=== PATIENT | female | born 1965 | race Caucasian/White ===

== ENCOUNTER → 2022-01-24 | Outpatient (CLI) | payer OTHER, SELFPAY | END | disposition home or self-care (01) | PROVIDERS: Visit Provider Nurse Practitioner | DX: H20.9 Unspecified iridocyclitis (principal); R30.0 Dysuria | CPT/HCPCS: 87086; 87088; 87186 ==

== ENCOUNTER → 2023-06-24 | Outpatient (CLI) | payer OTHER, SELFPAY ==
--- OUTSIDE RECORDS SUMMARY | 2023-06-24 22:24 | XMS RPT_ITS | CCD ---
Author Name Unknown Address [address] [place] [address] Organization [facility] Care Team Providers Care Celery Packer Name Role Phone Usha Price Unavailable Unavailable OrlandoNabila north E Unavailable Unavailable Orlando Nabila Unavailable Unavailable Orlando, Nabila E Unavailable [phone] Unavailable Unavailable Judie Miranda Unavailable [phone] JUDIE MIRANDA Primary Care Unavailable RUTH JUDIE, JUDIE~[phone] RUTH Atte nding Unavailable MIRANDA JUDIE, JUDIE~[phone] RUTH Refe rring Unavailable CHRISTINE HU, ISAIAS Referring Unavailable TRESA HU, NABILA Primary Care Unavailable CHRISTINE HU, ISAIAS Attending Unavailable Ruth, Ms. Judie L Primary Care Unavailab dominick Menendez, Dr. Сергей Coffman Attending Sammie Miranda, Ms. Judie L Primary Care Unavailab dominick Menendez, Dr. Сергей Coffman Attending Dr. Сергей Olvera Attending Sammie Miranda, Ms. Judie L Primary Care Unavailab le Ruth, Ms. Judie L Primary Care Unavailab dominick Menendez, Dr. Сергей Coffman Attending Dr. Сергей Olvera Admitting Sammie Miranda, Ms. Judie L Referring Unavailab le Ruth, Ms. Judie L Primary Care Unavailab СЕРГЕЙ Lozano Attending Unavailabl Dr. Сергей Galvez Attending Smamie Miranda, Ms. Judie L Primary Care Unavailab dominick Menendez, Dr. Сергей Coffman Attending Sammie Menendez, Dr. Сергей Coffman Referring Sammie Menendez, Dr. Сергей Coffman Admitting Sammie Miranda, . Judie L Primary Care Unavailab dominick Miranda, . Judie L Primary Care Unavailab le Angela, Dr. Сергей Coffman Attending Sammie Orlando, Dr. Nabila Diaz Primary Care gio Nash, Jesu Attending Unavailable Angela, Dr. Сергей Coffman Attending Sammie Miranda, Ms. Judie L Primary Care Unavailab dominick Menendez, Dr. Сергей Coffman Attending Sammie Miranda, Ms. Juide L Primary Care Unavailab dominick Nash, Jesu Attending Mac Miranda, . Judie L Primary Care Unavailab dominick Miranda, Ms. Judie L Primary Care Unavailab dominick Menendez, Dr. Сергей Coffman Attending Sammie Miranda [facility], Judie Johnson Primary Care Provide r СЕРГЕЙ MENENDEZ Attending JUDIE [facility] Unavailable СЕРГЕЙ MENENDEZ Referring [facility] RUTH JUDIE [facility] Unavailable Allergies Allergy Classification Reported Allergen(s) Allergy Type Date of Onset Reaction(s) Facility Cephalosporins (antibiotic) (1 source) Cephalexin; Translations: [Keflex TABS] Drug Allergy Rash [facility] Work Phone: (20 sources) Cephalexin; Translations: [Keflex TABS] Drug Allergy Rash [facility] Work Phone: Medications Completed/Discontinued Medications Medication Drug Class(es) Dates Sig (Normalized) Sig (Original) acetaminophen 325 mg / HYDROcodone bitartrate 5 mg oral tablet (16 sources) Opioid Agonist Start: 06-12-2022 HYDROcodone-Acetami nophen 5-325 MG Oral Tablet Quantity: 3 Refills: 0 Ordered: 12-Jun-2022 DO Start : 12-Jun-2022 Active amoxicillin 500 mg oral capsule (16 sources) Penicillin-class Antibacterial Start: 06-12-2022 Amoxicillin 500 MG Oral Capsule Quantity: 28 Refills: 0 Ordered: 12-Jun-2022 DO Start : 12-Jun-2022 Active baclofen 5 mg oral tablet (16 sources) gamma-Aminobutyric Acid-ergic Agonist Start: 11-13-2021 Baclofen 5 MG Oral Tablet Quantity: 60 Refills: 0 Ordered: 13-Nov-2021 DO Start : 13-Nov-2021 Active ciprofloxacin 500 mg oral tablet (16 sources) Quinolone Antimicrobial Start: 01-24-2022 Ciprofloxacin HCl - 500 MG Oral Tablet Quantity: 14 Refills: 0 Ordered: 24-Jan-2022 DO Start : 24-Jan-2022 Active citric acid 75 mg/ml / magnesium oxide 21.9 mg/ml / picosulfate sodium 0.0625 mg/ml oral solution (16 sources) Calculi Dissolution Agent, Anti-coagulant Start: 07-09-2022 Clenpiq 10-3.5-12 MG-GM -GM/160ML Oral Solution Quantity: 320 Refills: 0 Ordered: 09-Jul-2022 DO Start : 09-Jul-2022 Active cyclobenzaprine hydrochloride 10 mg oral tablet (16 sources) Muscle Relaxant Start: 07-23-2022 take 1 tablet by mouth at bedtime as needed Cyclobenzaprine HCl - 10 MG Oral Tablet TAKE 1 TABLET AT BEDTIME NEEDED. Quantity: 30 Refills: 0 Ordered: 23-Jul-2022 Jenaro Gillespie MD Start : 23-Jul-2022 Active diazePAM 10 mg oral tablet (16 sources) Benzodiazepine Start: 05-10-2022 diazePAM 10 MG Oral Tablet Quantity: 2 Refills: 0 Ordered: 17-May-2022 DO Start : 10-May-2022 Active levothyroxine sodium 0.075 mg oral tablet (20 sources) l-Thyroxine Start: 09-20-2021 Levothyroxine Sodium 75 MCG Oral Tablet Quantity: 90 Refills: 0 Ordered: 20-Sep-2021 DO Start : 20-Sep-2021 Active Problems Active Problems Problem Classification Problem Date Documented Date Episodic/Chronic Allergic reactions (20 sources) H/O: non-drug allergy; Translations: [Other allergy, other than to medicinal agents] Episodic Asthma (2 sources) Unspecified asthma, uncomplicated; Translations: [Unspecified asthma, uncomplicated] Onset: 10-13-2022 Chronic Complications of surgical procedures or medical care (1 source) Postprocedural hypothyroidism; Translations: [Postprocedural hypothyroidism] Onset: 11-07-2022 Chronic Complications of surgical procedures or medical care (20 sources) Complication of anesthesia; Translations: [Unspecified adverse effect of anesthesia] Onset: 10-30-2022 Episodic Diabetes mellitus without complication (18 sources) Impaired fasting glycemia; Translations: [Impaired fasting glucose] Episodic Disorders of lipid metabolism (20 sources) Hypertriglyceridemia; Translations: [Pure hyperglyceridemia] Chronic Esophageal disorders (1 source) Gastro-esophageal reflux disease without esophagitis; Translations: [Gastro-esophageal reflux disease without esophagitis] Onset: 10-13-2022 Chronic Gangrene (1 source) Gangrene, not elsewhere classified; Translations: [Gangrene, not elsewhere classified] Onset: 11-07-2022 Episodic Genitourinary symptoms and ill-defined conditions (20 sources) Proteinuria; Translations: [Proteinuria] Episodic Immunizations and screening for infectious disease (20 sources) Patient encounter status; Translations: [Other specified vaccination] Episodic Nonmalignant breast conditions (20 sources) Discharge from nipple; Translations: [Other signs and symptoms in breast] Episodic Other acquired deformities (1 source) Spondylolisthesis, lumbar region; Translations: [Spondylolisthesis, lumbar region] Onset: 08-28-2022 Episodic Other acquired deformities (1 source) Spondylolisthesis, lumbosacral region; Translations: [Spondylolisthesis, lumbosacral region] Onset: 01-10-2023 Episodic Other aftercare (1 source) Encounter for other orthopedic aftercare; Translations: [Encounter for other orthopedic aftercare] Onset: 11-22-2022 Episodic Other circulatory disease (20 sources) History of clinical finding in subject; Translations: [Personal history of other diseases of circulatory system] Episodic Other connective tissue disease (2 sources) Arthrodesis status; Translations: [Arthrodesis status] Onset: 11-09-2022 Episodic Other hematologic conditions (20 sources) H/O: anemia; Translations: [Personal history of diseases of blood and blood-forming organs] Episodic Other nervous system disorders (20 sources) Neuropathy; Translations: [Mononeuritis of unspecified site] Chronic Other nervous system disorders (20 sources) Carpal tunnel syndrome; Translations: [Carpal tunnel syndrome] Chronic Other non-traumatic joint disorders (20 sources) Multiple joint pain; Translations: [Pain in joint, multiple sites] Episodic Other nutritional; endocrine; and metabolic disorders (20 sources) Body mass index 30+ - obesity; Translations: [Body Mass Index 36.0-36.9, adult] Chronic Other nutritional; endocrine; and metabolic disorders (1 source) Body mass index (BMI) 45.0-49.9, adult; Translations: [Body mass index [BMI] 45.0-49.9, adult] Onset: 11-07-2022 Chronic Other nutritional; endocrine; and metabolic disorders (1 source) Morbid (severe) obesity due to excess calories; Translations: [Morbid (severe) obesity due to excess calories] Onset: 11-07-2022 Chronic Other nutritional; endocrine; and metabolic disorders (1 source) Body mass index (BMI) 40.0-44.9, adult; Translations: [Body mass index [BMI] 40.0-44.9, adult] Onset: 10-13-2022 Chronic Other nutritional; endocrine; and metabolic disorders (1 source) Obesity, unspecified; Translations: [Obesity, unspecified] Onset: 10-13-2022 Chronic Other screening for suspected conditions (not mental disorders or infectious disease) (20 sources) Cancer cervix - screening done; Translations: [Patient encounter status] Episodic Past or Other Problems Problem Classification Problem Date Documented Da te Episodic/Chronic Other connective tissue disease (20 sources) Tendinitis of right elbow; Translations: [Other synovitis and tenosynovitis] Resolved: 09-23-2018 Episodic Other connective tissue disease (1 source) Pain in left leg; Translations: [Pain in left leg] Onset: 07-23-2022 Episodic Other connective tissue disease (1 source) Tendinitis of right elbow; Translations: [History of Right elbow tendonitis] Other lower respiratory disease (20 sources) H/O: bronchitis; Translations: [Personal history of other diseases of respiratory system] Resolved: 08-30-2014 Episodic Other lower respiratory disease (20 sources) Cough; Translations: [Cough] Resolved: 01-03-2020 Episodic Other skin disorders (20 sources) Skin lesion; Translations: [Unspecified disorder of skin and subcutaneous tissue] Resolved: 04-16-2016 Episodic Unclassified (20 sources) History of clinical finding in subject; Translations: [History of cough] Resolved: 09-23-2018 Unclassified (1 source) Influenza vaccination declined; Translations: [History of Influenza vaccination declined] Unclassified (1 source) Patient encounter status; Translations: [Visit for screening mammogram] NEGATED: Highlighted row has not occurred!Residual codes; unclassified (3 sources) Disease Episodic Results Test Name Value Interpretation Reference Range Facil ity Vital Signs Date Time Vital Sign Value Performing Clinician Faci lity 04-11-2023 08:36-0500 Body height 167.6 cm Сергей Menendez MD Work Phone: [facility] 04-11-2023 08:36-0500 Body mass index (BMI) [Ratio] 45.68 kg/m2 Сергей Menenedz MD Work Phone: [facility] 04-11-2023 08:36-0500 Body weight 128.37 kg Сергей Menendez MD Work Phone: [facility] 07-23-2022 11:02-0500 Body height 170.18 cm Nabila Orlando [facility] [address] [place] Work Phone: 07-23-2022 11:02-0500 Body mass index (BMI) [Ratio] 42.29 kg/m2 Nabila Orlando Work [facility] [address] [place] Work Phone: 07-23-2022 11:02-0500 Body surface area Derived from formula 2.3 m2 Nabila Orlando Work [facility] [address] [place] Work Phone: 07-23-2022 11:02-0500 Body weight 122.47 kg Nabila Orlando Work [facility] [address] [place] Work Phone: 03-24-2021 09:48-0400 Systolic blood pressure 110 mm[Hg] Nabila Orlando Work Phone: [facility] Work Phone: Encounters Encounter Date Encounter Type Care Provider Facility Start: 04-11-2023 End: 04-12-2023 ambulatory [facility]NA[facility] Start: 04-11-2023 End: 04-11-2023 Office outpatient visit 15 minutes Сергей Menendez MD Work Phone: [facility] Procedures Date Procedure Procedure Detail Performing Clinician Start: 04-11-2023 XR LUMBAR SPINE 2-3 VIEWS СЕРГЕЙ MENENDEZ Start: 01-01-2020 Mammography Сергей villafuerte MD Work Phone: Start: 06-13-2018 Thyrotropin [Units/v olume] in Serum or Plasma Сергей Menendez MD Work Phone: section Usha cruz Cholecystectomy Usha vergara History of Hysterosc opy With Endometrial Ablation Usha Price Hysterectomy Usha Price Plan of Treatment Date Care Activity Detail Author Start: 04-11-2023 End: 04-11-2024 XR Lumbar spine 2 or 3 Views [facility] Servic e Area Work Phone: Immunizations Immunization Date Immunization Notes Care Provider [facility] 03-16-2021 Pfizer-BioNTech COVI D-19 Vacc 30 MCG/0.3ML Intramuscular Suspension Nabila Orlando Work Phone: [facility] [address] [place] Work Phone: 07-02-2020 Pfizer-BioNTech COVI D-19 Vacc 30 MCG/0.3ML Intramuscular Suspension Nabila Orlando Work Phone: [facility] [address] [place] Work Phone: 06-11-2020 Pfizer-BioNTech COVI D-19 Vacc 30 MCG/0.3ML Intramuscular Suspension Nabila Orlando Work Phone: [facility] Work Phone: Payers Date Payer Category Payer Private Health Insurance [id number] 2008 Private Health Insurance 1967 Unknown [id number] 2.16.8 [id number] 1967 Unknown [id number] 2.16.8 [id number] 1967 Unknown [id number] 2.16.8 [id number] 1967 Unknown [id number] 2.16.8 40.1.842447.3.579.2.1067 1967 Unknown [id number] 2.16.8 40.1.663778.3.579.2.1067 1967 Unknown [id number] 2.16.8 40.1.999965.3.579.2.1067 1967 Unknown [id number] 2.16. [id number] 1967 Unknown [id number] 2.16.8 40.1.555404.3.579.2.1068 1967 Unknown [id number] .16.8 40.1.265352.3.579.2.1068 1967 Unknown [id number] 2.16.8 40.1.092017.3.579.2.1068 1967 Unknown [id number] 2.16.8 40.1.366904.3.579.2.1068 1967 Unknown [id number] 2.16.8 40.1.745576.3.579.2.1068 1967 Unknown [id number] 2.16.8 40.1.987349.3.579.2.1068 1967 Unknown [id number] 2.16.8 40.1.485250.3.579.2.1068 1967 Unknown [id number] 2.16.8 40.1.590040.3.579.2.1069 1967 Unknown [id number] 2.16.84 0.1.307694.3.579.2.1243 1967 Unknown [id number] 2.16.84 [id number] Self-pay Unknown Social History Date Type Detail Facility No alcohol use No alcohol use [facility] Work Phone: Functional Status Date Assessment Result Facility NEGATED: Highlighted row Functional performance Functional status health issues are not documented Disease [facility] Work Phone: Mental Status Date Assessment Result Facility NEGATED: Highlighted row Cognitive function [Interpretation] Cognitive status health issues are not documented Disease [facility] Work Phone: Clinical Notes 07-23-2022 to 04-11-2023 Сергей Menendez MD - 04/11/2023 8:30 AM EST Note Date & Type Note Facility 04-11-2023 History of Present illness Narrative La Biswas is a 57 y.o. female who presents for Follow-up of the Lower Back (F/U L5-S1 TLIF 10/12/22 - 6 mths out w/ AP /LAT X-Ray Today/Lumbar I&D 11/05/22 5 Mths Out - Doing Good/). HPI: 57-year-old female here for surgical follow-up. She is 6 months out from an L5-S1 MIS TLIF. And subsequent washout. She denies any fever chills nausea vomiting night sweats she has no bowel or bladder complaints. Physical exam: Well-nourished, well kept.No lymphangitis or lymphadenopathy in the examined extremities. Gait normal. Can walk on heels and toes. Examination of the back reveals no swelling, step off, or point tenderness. Range of motion with flexion, extension, side bending and rotation is well maintained without crepitance, instability, or exacerbation of pain. Strength is within normal limits. There is good strength and no instability. Examination of the lower extremities reveals no point tenderness, swelling, or deformity. Range of motion of the hips, knees, and ankles are full without crepitance, instability, or exacerbation of pain. Strength is 5/5 throughout. No redness, abrasions, or lesions on extremities Gross sensation intact in the extremities. Deep tendon reflexes 2+ bilateral. Clonus negative. Affect normal. Alert and oriented 3. Coordination normal. Incisions are both very well-healed. Imaging studies: AP lateral plain films of the lumbar spine were obtained and reviewed today. Assessment: 57-year-old female is here for surgical follow-up. She is 6 months out from an L5-S1 TLIF on October 12, 2022, with a subsequent washout on November 05, 2022. She is doing very well today. Overall 80% better. She has minimal if any back pain, and no real leg pain to speak of except at night when she lays on her left side she does get a little bit of left leg ache but when she is up and moving during the day she does not have any problems. The incisions look very well-healed. Plan: For complete plan and/or surgical details, please refer to Dr. Menendez's portion of this split dictation. In a [id number] encounter, I performed a history and physical examination, discussed pertinent diagnostic studies if indicated, and discussed diagnosis and management strategies with both the patient and the midlevel provider. I reviewed the midlevel's note and agree with the documented findings and plan of care. 6 months out L5-S1 MIS TLIF. Patient doing great. She has some left hip bursitis which is giving her a little bit of pain down the left lateral thigh to the knee when she lies on her left side at night. Otherwise she feels good. She is functioning normally in life and very happy with how she is doing. X-rays look good today. Plan we will let her engage in activities as tolerated and she can follow-up with us in 6 months for AP lateral x-rays of the lumbar spine. documented in this encounter [facility] Work Phone: 11-07-2022 Note Send Summary: Discharge Summary Providers: Provider RoleProvider Name Judie Lopez Robert ConsultingCataline, Philip PrimaryRichardson, Judie L Note Recipients: Сергей Menendez MD - [id number] [Preferred] Franki Zelaya MD Discharge: Summary: Admission Date: .03-Nov-2022 13:27:00 Discharge Date: 07-Nov-2022 Attending Physician at Discharge: Сергей Menendez Admission Reason: Spinal abscess(1) Final Discharge Diagnoses: s/p back I&D Procedures: Date: 05-Nov-2022 13:49:00 Procedure Name: 1. 2. 3. 4. 5. Condition at Discharge: Satisfactory Disposition at Discharge: .Home Vital Signs: T PRBPMAPSpO2 [id number]/359812% Date/Time11/07 8: 8: 8: 8: 8: 8:12 Range(36.1C - 36.4C ) (59 - 70 ) (16 - 18 ) (99 - 130 )/ (53 - 65 ) (79 - 87 ) (94% - 96% ) Date: Weight/Scale Type:Height: 03-Nov-2022 13:00031.3 kg / odlkczdq240.4 cm Hospital Course: Discharge summary This patient was admitted to the hospital on 11/03/22 after having positive fluid aspiration form office later that week - form her back. pt then underwent back I&D on 11/05/22- During the postoperative period, while in hospital, patient was medically managed by the hospitalist and ID Please see medial notes and H&P for patients additional diagnoses. Ortho agrees with all medical diagnoses and treatments while patient in hospital. No significant or unexpected findings or abnormal ortho imaging were noted during the hospital stay Hospital course Patient tolerated surgical procedure well and there was no complications. Patient progressed adequately through their recovery during hospital stay including PT and rehabilitation. Patient was then D/C to home with HHC/ PICC and IV antibiotics in stable condition. Patient was instructed on the use of pain medications, the signs and symptoms of infection, and was given our number to call should they have any questions or concerns following discharge. Discharge Information: and Continuing Care: Lab Results - Pending: Culture, Miscellaneous, includes Gram Stain Drawn at 05-Nov-2022 13:30:00 Culture, Miscellaneous, includes Gram Stain Drawn at 05-Nov-2022 13:30:00 Culture, Blood Drawn at 03-Nov-2022 14:18:00 Culture, Blood Drawn at 03-Nov-2022 14:18:00 Radiology Results - Pending: None Discharge Instructions: Activity: activity as tolerated. May not return to school/work. May not drive. Weight-bearing Instructions: full weight bearing. Nutrition/Diet: resume normal diet Labs: Lab Test(s): Basic Metabolic Panel, CBC, CRP Date To Be Drawn: weekly- starting on 11/15/22 x3 occurrences Call Results To: ID office Comments: Dr Montes Wound Care: Wound Site: back Change Dressin time a day as needed Line Care: Homecare ONLY Lines: Adult Access Type: PICC Line Site: Right Homecare Line Care Orders: - Pulse Flush each lumen with 10 mLs normal saline flush before and after medications, followed by 5 mls of 10 units per ml heparin flush. Follow with positive displacement line clamping technique. - If medication is not infusing, flush each lumen daily with 10 ml normal saline followed by 5 mls of 10 units per ml heparin flush. - Weekly sterile dressing change with chloroprep, if tolerated, and sterile gloves and mask. Use transparent dressing. May use Tegaderm CHG or Chlorhexidine disk for high risk infection patients. Use securement device or dressing and change weekly. - Sterile gauze dressings are changed three times per week if transparent is not tolerated. - Change injection cap and extension sets weekly and as needed. Cleanse catheter hub with Site-Scrub (preferred), or alcohol pads with injection cap change. Prime injection cap with normal saline before use. Coordinate with dressing change, if possible. - Tubing changes - DAILY for intermittent infusions, lipid, or blood products. Every 96 hours for continuous infusions. Maximum of 7 days for CORPORATE RECYCLING MANAGER or other low infection risk therapies that remain intact. Use separate tubings for different medications. - Cathflo 2 mg IV as needed per lumen for sluggish lines, loss of, or poor blood return. Stopcock or Vertical Syringe method per RN discretion for completely occluded lines. Dwell time 2 hours whenever possible. Maximum daily dose is 4 mg for a single lumen and 8 mg for a double lumen catheter. - RN to record number of lumens, size and length of catheter, and external catheter length. Assess weekly and as needed. Assess baseline mid upper arm circumference at start of care and prn for signs and symptoms of edema and DVT. Record on dressing and in clinical note. - LINE may remain in place with a valid need, if patency is maintained and there is no migration, pain, redness, swelling, or signs and symptoms of infection, and site is clean and dry. Notify MD of (more content not included)... [facility] 11-05-2022 Note Post Operative Note: Post-Procedure Diagnosis: Lumbar suprafascial wound infection Procedure: 1. 2. 3. 4. 5. Surgeon: Angela Resident/Fellow/Other [employer] Director: Juan Estimated Blood Loss (mL): Minimal Specimen: yes. Left superficial/suprafascial aspiration. Right tissue cultures and swabs Findings: Lumbar suprafascial wound infection Operative Report Dictated: Dictation: not applicable - note contains Operative Report Note Recipients: Сергей Menendez MD - [id number] [Preferred] Franki Zelaya MD Richardson, Dora L, [facility] - [phone] [] Operative Report: Preoperative diagnosis: L4-5 suprafascial wound infection/postoperative Postop diagnosis: Above Procedure: Irrigation debridement down to and including the fascia on the right at L4-5. There was no bone or muscle involvement. Cultures were sent. Additionally, aspiration of the left suprafascial wound was performed and fluid was sent for Gram stain cultures and cell count. Surgeon: Сергей Menendez M.D. Asst.: Fabrice DunlapThe physician apartment assistant manager was present through the entire case. Given the nature of the disease process and the procedure to be performed a skilled surgical resident was necessary during the case. The apartment assistant manager was necessary in order to hold retractors and directly assist in the operation. A certified pedorthotist was at the back table managing instruments and supplies for the surgical case. Anesthesia: General endotracheal HPI: Status post MIS TLIF October 12, 2022. Developed some right incisional drainage last week. Aspiration grew out group B streptococcus. MRI was performed over the weekend. Patient is scheduled for washout of the right suprafascial wound. We also discussed with her aspirating the left suprafascial wound.All of the risks, benefits, and potential complications for operative and nonoperative treatment were discussed at length with the patient. Risks of operative intervention include, but are not limited to: Anesthesia complications, extensive blood loss, infection, damaged uninjured structures, blood clots, and lack of improvement or worsening of symptoms. These complications could result in , permanent disability, or need for reoperation. The patient completely understood these risks and wished to proceed with operative intervention. Operative implants: None Operative procedure: The patient was wheeled from the preanesthesia care unit to the theater. The patient was placed in supine position and all bony prominences were well-padded. For the entire procedure anesthesia maintainined control of the patient's head neck. General anesthesia was induced. The patient was placed prone on the Christiano table. The back was prepped and draped in normal sterile fashion. Aspiration was performed of the left suprafascial wound and obtained 65 cc of tri liquidy fluid. This was sent to pathology. I spoke with pathology on the phone and explained to me it would be quite some time before they could run a cell count and Gram stain as they normally send those downtown. I explained to them the urgency and they said they would try but they could not promise when that would be done. The right wound was opened up and purulent material and some necrotic fibrinous material was encountered. Tissue was sent for cultures. Swabs were taken. The wound was irrigated with copious amounts of normal saline using pulse Avage and a 3 L bag. Once the bag was empty the wound base and edges were scraped with a curette. At this point there was clean tissue throughout the entire wound base and this was suprafascial. The wound was irrigated again with copious months normal saline using pulse Avage irrigation for 2 more liters. Bovie was then used to stop some of the larger bleeders. At this point the wound was relatively dry and clean. A drain was placed and tied into position. The skin was closed with Prolene suture. At this point the lab was nowhere close to having results therefore the patient was woken up due to the uncertainty of how long we would need to wait given the inability of the lab to provide expedited service. The patient tolerated the procedure well. This dictation was created using voice recognition software. If there are any questions about inaccuracies please do not hesitate to contact me. Electronic Signatures: Сергей Menendez) (Signed 05-Nov-2022 13:55) Authored: Post Operative Note, Note Completion Last Updated: 05-Nov-2022 13:55 by Сергей Menendez) [facility] 11-03-2022 Note History of Present I llness: /Lactating: Are You no Are You Currently Breastfeedingno Admission Reason: Back abscess drainage HPI: LA BISWAS is a 57 year old Female patient was brought in as a direct admit due to drainage to her right lower back incision. Back on October 12, 2022 Dr. Menendez performed an L4-L5 left microdiscectomy and an L5-S1 lumbar fusion with an interbody cage. She states that she was doing pretty good then she noticed recently that she was having drainage on the right side of the bottom of the incision went and seen had a culture and sensitivity done by Dr. Menendez they elected to bring her in have an MRI done and place her on IV antibiotics. She denies loss of bowel or bladder. Her left incision to her lower back is clean and dry on the right there is some drainage on the top portion of the incision. She is got good sensation capillary refill 5 out of 5 foot pumps. Past medical history includes back pain/herniated disc, hypothyroidism Surgical history includes back surgery on October 12, hysterectomy, cholecystectomy, thyroidectomy Social history denies tobacco or alcohol abuse Past Medical/Surgical History: Medical History: Hypothyroidism: Sleep apnea: GERD (gastroesophageal reflux disease): Asthma: Surg History: Back pain: Other spondylosis, lumbosacral region: Onset Date: 16-Oct-2022 Other spondylosis, lumbar region: Onset Date: 16-Oct-2022 Spondylolisthesis of lumbosacral region: Onset Date: 16-Oct-2022 Spinal stenosis of lumbosacral region: Onset Date: 16-Oct-2022 Other intervertebral disc displacement, lumbar region: Onset Date: 16-Oct-2022 History of hysterectomy: History of cholecystectomy: History of section: Family History: Family History: reviewed and not pertinent to presenting problem Social History: Social History: Smoking Statusnever smoker Alcohol Usedenies Drug Usedenies Drug 2 Usedenies Allergies: cephalexin: Rash Medications Prior to Admission: Admission Medication Reconciliation has not been completed for this patient. Review of Systems: Constitutional: NEGATIVE: Fever, Chills, Anorexia, Weight Loss, Malaise Eyes: NEGATIVE: Blurry Vision, Drainage, Diploplia, Redness, Vision Loss/ Change ENMT: NEGATIVE: Nasal Discharge, Nasal Congestion, Ear Pain, Mouth Pain, Throat Pain Respiratory: NEGATIVE: Dry Cough, Productive Cough, Hemoptysis, Wheezing, Shortness of Breath Cardiac: NEGATIVE: Chest Pain, Dyspnea on Exertion, Orthopnea, Palpitations, Syncope Gastrointestinal: NEGATIVE: Nausea, Vomiting, Diarrhea, Constipation, Abdominal Pain Genitourinary: NEGATIVE: Discharge, Dysuria, Flank Pain, Frequency, Hematuria Musculoskeletal: POSITIVE: Decreased ROM, Pain, Stiffness; COMMENTS: Lower back Neurological: NEGATIVE: Dizziness, Confusion, Headache, Seizures, Syncope Psychiatric: NEGATIVE: Mood Changes, Anxiety, Hallucinations, Sleep Changes, Suicidal Ideas Skin: COMMENTS: Lower right incision small amount of drainage noted Endocrine: NEGATIVE: Heat Intolerance, Cold Intolerance, Sweat, Polyuria, Thirst Hematologic/Lymph: NEGATIVE: Anemia, Bruising, Easy Bleeding, Night Sweats, Petechiae Allergic/Immunologic: NEGATIVE: Anaphylaxis, Itchy/ Teary Eyes, Itching, Sneezing, Swelling Objective: Physical Exam by System: Eyes: PERRL, EOMI, clear sclera ENMT: mucous membranes moist, no apparent injury, no lesions seen Head/Neck: Neck supple, no apparent injury, thyroid without mass or tenderness, No JVD, trachea midline, no bruits Respiratory/Thorax: Patent airways, CTAB, normal breath sounds with good chest expansion, thorax symmetric Cardiovascular: Regular, rate and rhythm, no murmurs, 2+ equal pulses of the extremities, normal S 1and S 2 Gastrointestinal: Nondistended, soft, non-tender, no rebound tenderness or guarding, no masses palpable, no organomegaly, +BS, no bruits Musculoskeletal: Lower back right incision small amount of drainage noted Extremities: normal extremities, no cyanosis edema, contusions or wounds, no clubbing Neurological: alert and oriented x3, intact senses, motor, response and reflexes, normal strength Skin: Warm and dry, no lesions, no rashes Medications: Medications: Continuous Medications No continuous medications are active Scheduled Medications 1. diazePAM (VALIUM): 5 mg Oral Once 2. Vancomycin - RPh to Dose - IV Piggy Back: 1 each As Specified Variable PRN Medications No PRN medications are active Assessment and Plan: Assessment: 57-year-old female back on 10/02/2022 had a microdiscectomy at the L4-L5 and L5-S1 had a interbody fusion with a cage. In the past couple days she noticed some drainage on the right lower incision they elected to send (more content not included)... [facility] 10-13-2022 Note Send Summary: Discharge Summary Providers: Provider RoleProvider Name Сергей Marc Robert PrimaryRichardson, Dora L Note Recipients: Сергей Menendez MD - [id number] [Preferred] Judie Miranda APRNJENNIFER - [phone] [] Discharge: Summary: Admission Date: .12-Oct-2022 05:13:00 Discharge Date: 13-Oct-2022 Attending Physician at Discharge: Сергей Menendez Admission Reason: Back pain Final Discharge Diagnoses: Back pain Procedures: Date: 12-Oct-2022 11:12:00 Procedure Name: 1. 2. 3. 4. 5. Condition at Discharge: Satisfactory Disposition at Discharge: .Home Vital Signs: T PRBPMAPSpO2 [id number]% Date/Time10/13 8: 8: 8: 8: 8: 8:00 Range(36C - 36.4C ) (59 - 86 ) (16 - 18 ) (113 - 122 )/ (57 - 73 ) (86 - 86 ) (93% - 98% ) Date: Weight/Scale Type:Height: 12-Oct-2022 13:32255.8 kg / buvdzodb993.1 cm Physical Exam: Constitutional: obese, awake/alert/oriented, no distress, alert and cooperative Eyes: clear sclera ENMT: mucous membranes moist, no apparent injury Head/Neck: Neck supple, no apparent injury Respiratory/Thorax: Patent airways, good chest expansion, thorax symmetric Musculoskeletal: Lower back 2 side by side dressings vertically placed Left dressing is soiled with bloody drainage, appears to be old Dressings changed and steri strips visualized No erythema, purulent drainage or wound dehiscence Neurological: alert and oriented, no clear focal deficit Psychological: Appropriate mood and behavior Skin: Warm and dry Hospital Course: The patient was admitted to the hospital and after undergoing a surgical spine procedure: Procedure: 1) L4-5 left microdiscectomy, L5-S1 removal of Pittman fragment in order to provide decompression of the left L5 nerve root via a separate and distinct approach that was needed for placement of interbody cage 2) L5-S1 posterior lumbar interbody fusion 3) L5-S1 posterior lateral fusion 4) L5-S1 instrumentation 5) L5-S1 interbody cage 6) Thermal ablation of the medial nerve branch supplying the facets at on the left at L4-5 and L5-S1. She was evaluated and is now ready for discharge. During the hospital course, while in the hospital, the patient was medically managed; hospitalist consultation was sought when needed. The patient received appropriate care for noted diagnosis and treatment. Orthopedic surgery agrees with all medical diagnosis and treatments while the patient was in the hospital. No significant or unexpected findings or abnormal imaging were noted during the hospital stay. The patient tolerated orthopedic consultation and or surgical procedure well and there were no complications. The patient progressed adequately through the recovery during their stay including the use of PT and rehabilitation. DVT prophylaxis was started after surgery if appropriate. The patient was discharged to home in stable condition. The patient was instructed on the use of pain medication, the signs and symptoms of infection, and was given our number to call should they have any questions or concerns following discharge. Discharge Information: and Continuing Care: Lab Results - Pending: Surgical Pathology Drawn at 12-Oct-2022 10:31:00 Radiology Results - Pending: None Discharge Instructions: Activity: activity as tolerated. May shower.. May not return to school/work until follow-up visit with. May not drive until follow-up visit. No pushing, pulling, or lifting objects greater than 10 pounds until follow-up visit. Nutrition/Diet: resume normal diet Wound Care: Wound Type: surgical incision Cleanse With: soap and water Instructions: no lotions, creams, or tub soaks Additional Orders: Special Equipment: brace Brace Instructions: Lumbosacral Brace to wear when out of bed ambulating Additional Instructions: Call Dr. Menendez for any problems and/or concerns. *Maintain spine precautions *Log roll as instructed *Walk as much as possible *Avoid pushing, pulling, bending, twisting, and sitting/laying down in the same position for long periods of time *No baths, hot tubs, or pools until cleared by physician; no lotions, creams, ointments over incision *You may shower, do not soak or scrub incision; pat dry *Continue the coughing and deep breathing exercises that you learned in the hospital *Do not engage in sports, heavy work or lifting *If you have a brace/collar-wear as instructed by physician and/or therapy, keep the brace/collar clean and dry, check the skin around the brace/collar every day and notify your physician of any concerns Call Doctor right away for: *Fever above 100.4/shaking chills *New pain, weakness, warmth, or numbness in your legs *Foot, ankle, or calf swelling that is not relieved by elevating your feet *Inability to urinate/move bowels *A severe headache (more content not included)... [facility] 10-12-2022 History of Present illness Narrative La is here for a wound check. She initially had an L5-S1 MIS TLIF On October 12, 2022. She developed a superficial fluid collection on the right incision of that procedure. She had a lumbar I&D washout On Saturday the . She was discharged home on Saturday. Last night she noticed that her dressing between noon and midnight was soaked pretty much completely through and she was concerned so she came in today for a wound check. The bandage was changed and a new bandage was put on. At the office visit today there was just one small spot about the size of a pea of some drainage, but it does not look purulent and it does not look infected. It looks like pink serosanguineous fluid. She has had no other issues with drainage. She still has a PICC line in her right arm. She is continuing to receive IV antibiotics. Overall she is feeling pretty well, not a lot of back pain. not significant leg complaints. She is not using the cane for ambulation anymore. She is standing and walking freely. She denies any fever, chills, nausea, vomiting, or night sweats. She has no bowel or bladder complaints. [facility] Work Phone: 10-12-2022 History of Present illness Narrative La is a 57-year-old female who is here for a wound check. She is two weeks out from a lumbar I&D washout of her right incision from a prior L5-S1 MIS TLIF done on 10/12/2022. She was having issues with her right incision. Over this past weekend, I believe she said Saturday, she got a lot of drainage on her bandage. It soaked completely through within a very short time. That bandage was changed and it soaked through completely again. She had photographs of this, it was a pinkish serosanguineous-looking fluid. That profuse drainage stopped very shortly after that and then over the next day or so she has noticed basically just small anne sized spots of a pinkish-yellow fluid and a little bit of dark blood. She has not had anymore episodes of the bandages soaking through. She is here today for a wound check. She is not having any fevers, chills, or sweats. She is not having any constitutional symptoms. She has no bowel or bladder problems. From a surgical standpoint she feels great, she is able to go up and down stairs, she is able to walk, she is able to sit and stand. She really feels great from a surgical standpoint. She still has a PICC line in her arm for antibiotics that should be coming out soon. [facility] Work Phone: 10-12-2022 Note Post Operative Note: Post-Procedure Diagnosis: Lumbar stenosis, isthmic spondylolisthesis, herniated disc, spondylosis Procedure: 1. 2. 3. 4. 5. Surgeon: Angela Resident/Fellow/Other [employer] Director: Juan Estimated Blood Loss (mL): 100 cc Specimen: yes. L4-5 herniated disc Findings: Lumbar stenosis, isthmic spondylolisthesis, herniated disc, spondylosis Operative Report Dictated: Dictation: not applicable - note contains Operative Report Note Recipients: Сергей Menendez MD - [id number] [Preferred] Judie Miranda, [facility] - [phone] [] Operative Report: Preoperative diagnosis: L4-5 left herniated disc and L5-S1 foraminal stenosis. L5-S1 isthmic spondylolisthesis. Lumbar spondylosis. Postop diagnosis: Same Procedure: 1) L4-5 left microdiscectomy, L5-S1 removal of Pittman fragment in order to provide decompression of the left L5 nerve root via a separate and distinct approach that was needed for placement of interbody cage 2) L5-S1 posterior lumbar interbody fusion 3) L5-S1 posterior lateral fusion 4) L5-S1 instrumentation 5) L5-S1 interbody cage 6) Thermal ablation of the medial nerve branch supplying the facets at on the left at L4-5 and L5-S1. Surgeon: Сергей Menendez M.D. Asst.: Oswaldo Dunlap The physician apartment assistant manager was present through the entire case. Given the nature of the disease process and the procedure to be performed a skilled surgical resident was necessary during the case. The apartment assistant manager was necessary in order to hold retractors and directly assist in the operation. A certified pedorthotist was at the back table managing instruments and supplies for the surgical case. Anesthesia: General HPI: The patient had pain from the above-described condition. The patient failed all nonoperative treatment. All of the risks, benefits, and potential complications for operative and nonoperative treatment were discussed at length with the patient. Risks of operative intervention include, but are not limited to: Anesthesia complications, excessive blood loss, infection, damaged to uninjured structures including, but not limited to, the dural sac and nerve roots, blood clots, and lack of improvement or worsening of symptoms. These complications could result in , permanent disability, or need for reoperation. The patient completely understood those risks and wished to proceed with operative intervention. Operative implants: Medtronic Solera Voyager screws, Medtronic Catalyft PL cage size 22 mm long 10 mm wide 7 mm high, Actifuse gun bone graft. Operative procedure: The patient was wheeled from the preanesthesia care unit to the theater. The patient was placed in supine position and all bony prominences were well-padded. For the entire procedure anesthesia maintainined control of the patient's head neck. General anesthesia was induced. The patient was then placed prone on the Christiano table. All bony prominences were well-padded. X-rays were then taken to confirm appropriate visualization of the operative level in AP and lateral projections.. Usingl fluoroscopic imaging the cephalad and caudal pedicles were marked on the patient's skin. The incisions were then marked. Next, the back was prepped and draped in normal sterile fashion. Timeout was performed, site verification was verified, and appropriate antibiotic administration was confirmed. A longitudinal incision was then performed off to the left side of the marke pedicles. Dissection was carried down through the skin with a knife and Bovie was used to dissect down the fat and the fascia. Blunt dissection was taken down to the transverse processes and facet on the left side. Next, the identical procedure was performed on the right side. Using AP and lateral fluoroscopic imaging and Pediguard, an and intrapedicular approach was performed. Using fluoroscopic imaging to to ensure that there was no breech of the pedicle, the trocar was brought down just through the posterior vertebral body wall of the right cephalad pedicle. This was done by starting at the 3 o'clock position. The guidewire was docked into the vertebral body. Next the identical procedure was performed on the left starting at the 9 o'clock position. In the identical procedure was then performed bilaterally at the caudal level for both pedicles. The wires were covered with suction tubing and appropriately stored. Appropriate pedicle guard readings were obtained for all 4 wires. Using lateral x-ray, dilators were placed on the patient's left side over the L5-S1 level facet and lamina. Dilators were dilated up to a size 22 and a permanent 26 mm tube was docked into appropriate position visualized on AP and lateral projections. The microscope was then brought in for use. Bovie was used to remove a small amount of fat and muscle overlying the facet and lamina. A Bovie was then used to perform thermal ablation (more content not included)... [facility] 07-23-2022 History of Present illness Narrative La is here for MRI followup and review. She is a patient that I saw on July 23, 2022. She is having back pain and left leg radicular-type pain. She has tried physical therapy in the past, but the therapy was making her hurt so bad that eventually the physical therapist stopped doing therapy and told her that this probably was not going to help her. This started in October of 2021 and eventually became low back pain and left leg radicular symptoms that usually goes down to about the side of the knee, but she does get some paresthesias and numbness in the left foot. There is nothing on the right side. She has tried physical therapy. She has tried medication. She has tried steroids. Nothing has helped. She got some cortisone injections by her family doctor, Dr. Orlando that did help, but only temporarily. She is here to discuss the findings on the EMG and the MRI. She denies any fever, chills, nausea, vomiting, or night sweats. She has no bowel or bladder complaints. [facility] Work Phone: documented in this encounter [facility] Work Phone: History of Present illness NarrativeThis is a new patient to the group, new patient to the practice. La is a 56-year-old female thathas about an eight-month or so history of low back pain and left leg radicular symptoms. This started in October of 2021. She was just doing normal activity and started to feel excessive back pain and radiating pain down in the left leg. This goes through the left buttock and around the lateral part of the thigh. It generally stops at the knee, although she does get some episodes of tingling and paresthesias down in the left foot. There is nothing on the right side. She had a flare-up of this in February of 2022 and it is getting worse. Overall, the back is what bothers her worse, probably 60% back and 40% left leg, but that is based on activity. It is affecting her bodily function. She cannot sleep at night. She cannot lie on her left side. She has seen her family doctor, Dr. Orlando, who gaveher some cortisone injections that did help, although temporarily. She did physical therapy at [facility]. She did three or four visits, and the physical therapist stopped the therapy and dismissed herfrom therapy because of the detrimental effects it was having on the patient. The therapy was causing her significant amounts of increased pain and was not working. She has failed physical therapy and was told by the therapist that therapy would not help her moving forward. Otherwise, she has not had epidural injections. She has never had surgery. She denies any fevers, chills, nausea or vomiting, night sweats. No bowel or bladder complaints.[facility] Work Phone: History of Present illness Katie is here for postop visit. She is 13 days out from an L5-S1 MIS TLIF. She states that her first few days after surgery were pretty rough; she was having a lot of back pain and she was having constant calf and left foot pain. This has resolved. She is not having that constant pain that she was having. She feels like she is still a little weak in the left leg, especially when she goes to go upor down stairs. She feels like she cannot lead with that leg yet. She was having left leg issues prior to her surgery. She had an isthmic spondylolisthesis at L5-S1. At this visit today, her foot does feel better. Her left lower extremity feels better. She gets a little occasional ache in the outside of the left calf, but it was not like it was before. She is still having some back pain. Overall maybe she is about 30% better. She is wearing her brace as instructed. She is following all postop restrictions. She denies any fever, chills, nausea, vomiting, or night sweats. She has no bowel or bladder complaints.[facility] Work Phone: History of Present illness Katie is doing great. She says her leg pain is mostly gone, except at night she notices some pain. She can go up and down stairs a lot of easier. She is at least 75% better with regards to the legs. The back is much better as well. All in all, she feels significantly better. She has no fevers or chills. She is still on IV antibiotics with a PICC line, and Infectious Disease is managing that. No bowel or bladder changes. No fevers.[facility] Work Phone: Summary Purpose Family History No Family History Records Found Grandfather Name Dates Details Family history of diabetes devon ellitus(V18.0, Z83.3) Status:Active Family history of cardiac pa cemaker(V17.49, Z82.49) Status:Active Mother Name Dates Details Family history of malignant neoplasm of breast(V16.3, Z80.3) Status:Active Father Name Dates Details Family history of diabetes m ellitus(V18.0, Z83.3) Status:Active Family history of hypertensi on(V17.49, Z82.49) Status:Active Unknown Family Member Name Dates Details Family history of malignant neoplasm of breast: Mother(V16.3, Z80.3) Status:Active Family history of diabetes m ellitus: Father, Paternal Grandfather(V18.0, Z83.3) Status:Active Family history of hypertensi on: Father(V17.49, Z82.49) Status:Active Family history of cardiac pa cemaker: Paternal Grandfather(V17.49, Z82.49) Status:Active Unknown Family Member Name Dates Details Family history of malignant neoplasm of breast: Mother(V16.3, Z80.3) Status:Active Family history of diabetes m ellitus: Father, Paternal Grandfather(V18.0, Z83.3) Status:Active Family history of hypertensi on: Father(V17.49, Z82.49) Status:Active Family history of cardiac pa cemaker: Paternal Grandfather(V17.49, Z82.49) Status:Active Unknown Family Member Name Dates Details Family history of malignant neoplasm of breast: Mother(V16.3, Z80.3) Status:Active Family history of diabetes m ellitus: Father, Paternal Grandfather(V18.0, Z83.3) Status:Active Family history of hypertensi on: Father(V17.49, Z82.49) Status:Active Family history of cardiac pa cemaker: Paternal Grandfather(V17.49, Z82.49) Status:Active Unknown Family Member Name Dates Details Family history of malignant neoplasm of breast: Mother(V16.3, Z80.3) Status:Active Family history of diabetes m ellitus: Father, Paternal Grandfather(V18.0, Z83.3) Status:Active Family history of hypertensi on: Father(V17.49, Z82.49) Status:Active Family history of cardiac pa cemaker: Paternal Grandfather(V17.49, Z82.49) Status:Active Unknown Family Member Name Dates Details Family history of malignant neoplasm of breast: Mother(V16.3, Z80.3) Status:Active Family history of diabetes m ellitus: Father, Paternal Grandfather(V18.0, Z83.3) Status:Active Family history of hypertensi on: Father(V17.49, Z82.49) Status:Active Family history of cardiac pa cemaker: Paternal Grandfather(V17.49, Z82.49) Status:Active Unknown Family Member Name Dates Details Family history of malignant neoplasm of breast: Mother(V16.3, Z80.3) Status:Active Family history of diabetes m ellitus: Father, Paternal Grandfather(V18.0, Z83.3) Status:Active Family history of hypertensi on: Father(V17.49, Z82.49) Status:Active Family history of cardiac pa cemaker: Paternal Grandfather(V17.49, Z82.49) Status:Active Unknown Family Member Name Dates Details Family history of malignant neoplasm of breast: Mother(V16.3, Z80.3) Status:Active Family history of diabetes m ellitus: Father, Paternal Grandfather(V18.0, Z83.3) Status:Active Family history of hypertensi on: Father(V17.49, Z82.49) Status:Active Family history of cardiac pa cemaker: Paternal Grandfather(V17.49, Z82.49) Status:Active Unknown Family Member Name Dates Details Family history of malignant neoplasm of breast: Mother(V16.3, Z80.3) Status:Active Family history of diabetes m ellitus: Father, Paternal Grandfather(V18.0, Z83.3) Status:Active Family history of hypertensi on: Father(V17.49, Z82.49) Status:Active Family history of cardiac pa cemaker: Paternal Grandfather(V17.49, Z82.49) Status:Active Unknown Family Member Name Dates Details Family history of malignant neoplasm of breast: Mother(V16.3, Z80.3) Status:Active Family history of diabetes m ellitus: Father, Paternal Grandfather(V18.0, Z83.3) Status:Active Family history of hypertensi on: Father(V17.49, Z82.49) Status:Active Family history of cardiac pa cemaker: Paternal Grandfather(V17.49, Z82.49) Status:Active Unknown Family Member Name Dates Details Family history of malignant neoplasm of breast: Mother(V16.3, Z80.3) Status:Active Family history of diabetes m ellitus: Father, Paternal Grandfather(V18.0, Z83.3) Status:Active Family history of hypertensi on: Father(V17.49, Z82.49) Status:Active Family history of cardiac pa cemaker: Paternal Grandfather(V17.49, Z82.49) Status:Active Unknown Family Member Name Dates Details Family history of malignant neoplasm of breast: Mother(V16.3, Z80.3) Status:Active Family history of diabetes m ellitus: Father, Paternal Grandfather(V18.0, Z83.3) Status:Active Family history of hypertensi on: Father(V17.49, Z82.49) Status:Active Family history of cardiac pa cemaker: Paternal Grandfather(V17.49, Z82.49) Status:Active Unknown Family Member Name Dates Details Family history of malignant neoplasm of breast: Mother(V16.3, Z80.3) Status:Active Family history of diabetes m ellitus: Father, Paternal Grandfather(V18.0, Z83.3) Status:Active Family history of hypertensi on: Father(V17.49, Z82.49) Status:Active Family history of cardiac pa cemaker: Paternal Grandfather(V17.49, Z82.49) Status:Active Unknown Family Member Name Dates Details Family history of malignant neoplasm of breast: Mother(V16.3, Z80.3) Status:Active Family history of diabetes m ellitus: Father, Paternal Grandfather(V18.0, Z83.3) Status:Active Family history of hypertensi on: Father(V17.49, Z82.49) Status:Active Family history of cardiac pa cemaker: Paternal Grandfather(V17.49, Z82.49) Status:Active Unknown Family Member Name Dates Details Family history of malignant neoplasm of breast: Mother(V16.3, Z80.3) Status:Active Family history of diabetes m ellitus: Father, Paternal Grandfather(V18.0, Z83.3) Status:Active Family history of hypertensi on: Father(V17.49, Z82.49) Status:Active Family history of cardiac pa cemaker: Paternal Grandfather(V17.49, Z82.49) Status:Active Unknown Family Member Name Dates Details Family history of malignant neoplasm of breast: Mother(V16.3, Z80.3) Status:Active Family history of diabetes m ellitus: Father, Paternal Grandfather(V18.0, Z83.3) Status:Active Family history of hypertensi on: Father(V17.49, Z82.49) Status:Active Family history of cardiac pa cemaker: Paternal Grandfather(V17.49, Z82.49) Status:Active Unknown Family Member Name Dates Details Family history of malignant neoplasm of breast: Mother(V16.3, Z80.3) Status:Active Family history of diabetes m ellitus: Father, Paternal Grandfather(V18.0, Z83.3) Status:Active Family history of hypertensi on: Father(V17.49, Z82.49) Status:Active Family history of cardiac pa cemaker: Paternal Grandfather(V17.49, Z82.49) Status:Active Unknown Family Member Name Dates Details Family history of malignant neoplasm of breast: Mother(V16.3, Z80.3) Status:Active Family history of diabetes m ellitus: Father, Paternal Grandfather(V18.0, Z83.3) Status:Active Family history of hypertensi on: Father(V17.49, Z82.49) Status:Active Family history of cardiac pa cemaker: Paternal Grandfather(V17.49, Z82.49) Status:Active Unknown Family Member Name Dates Details Family history of malignant neoplasm of breast: Mother(V16.3, Z80.3) Status:Active Family history of diabetes m ellitus: Father, Paternal Grandfather(V18.0, Z83.3) Status:Active Family history of hypertensi on: Father(V17.49, Z82.49) Status:Active Family history of cardiac pa cemaker: Paternal Grandfather(V17.49, Z82.49) Status:Active Unknown Family Member Name Dates Details Family history of malignant neoplasm of breast: Mother(V16.3, Z80.3) Status:Active Family history of diabetes m ellitus: Father, Paternal Grandfather(V18.0, Z83.3) Status:Active Family history of hypertensi on: Father(V17.49, Z82.49) Status:Active Family history of cardiac pa cemaker: Paternal Grandfather(V17.49, Z82.49) Status:Active Advance Directives No Advanced Directives Records FoundNo Advanced Directives Records FoundNo Advanced Directives Records FoundNo Advanced Directives Records FoundNo Advanced Directives Records FoundNo Advanced Directives Records FoundNo Advanced Directives Records Found Chief Complaint * Low Back Pain * Xrays Today * Low Back Pain * Xrays Today Low back and Lt leg pain, seen by Ned in June. MRI at [facility] and EMG done at [facility].Low back and Lt leg pain, seen by Ned in June. MRI at [facility] and EMG done at [facility].F/U L5-S1 MIS TLIF 10/12/22, 13 days POf/u lumbar wound check, had lump that drained yesterdayf/u lumbar. 4 days out from I&D. wound check. Lumbar I&D 11/05/22, Wound check* L5-S1MIS TLIF October 12, 2022 with irrigation and debridement November 05, 2022. * F/U L5-S1 TLIF 10/12/22 6 weeks out * Lumbar I&D 11/05/22 2 1/2 weeks out Reason for Referral Specialty Diagnoses / Procedures Referred By Do t Referred To Contact Radiology Diagnoses Status post lumbar spine operation Procedures XR lumbar spine 2-3 views Сергей Menendez MD [address] [facility], [address] [place] [id number] Referral ID Status Reason Start Date Expiration Date Visits Requested Visits Authorized [id number] Authorized Perform Procedure 3 04/10/2024 1 1 Additional Source Comments INFORMATION SOURCE (unrecogn ized section and content) DATE CREATED AUTHOR AUTHOR'S ORGANIZ ATION 10/05/2022 [facility] DATE CREATED AUTHOR AUTHOR'S ORGANIZ ATION 11/22/2022 [facility] DATE CREATED AUTHOR AUTHOR'S ORGANIZ ATION 11/27/2022 [facility] DATE CREATED AUTHOR AUTHOR'S ORGANIZ ATION 01/13/2023 [facility] DATE CREATED AUTHOR AUTHOR'S ORGANIZ ATION 01/15/2023 [employer] DATE CREATED AUTHOR AUTHOR'S ORGANIZ ATION 04/16/2023 [facility] Reason for Visit (unrecogniz ed section and content) Care Teams (unrecognized sec tion and content) FOR RECORDS PERTAINING TO PATIENTS WHO ARE OR HAVE BEEN ENROLLED IN A CHEMICAL DEPENDENCY/SUBSTANCEABUSE PROGRAM, SOME INFORMATION MAY BE OMITTED. This clinical summary was aggregated from multiple sources. Caution should be exercised in using it in the provision of clinical care. This summary normalizes information from multiple sources, and as a consequence, information in this document may materially change the coding, format and clinical context of patient data. In addition, data may be omitted in some cases. CLINICAL DECISIONS SHOULD BE BASED ON THE PRIMARY CLINICAL RECORDS. [facility] [employer] provides no warranty or guarantee of the accuracy or completeness of information in this document.
[2023-06-24 22:28] LABS: Absolute Lymphocyte Count 2.08 X10^3/uL (0.83-4.51); Absolute Neutrophil Count 2.8 X10^3/uL (2.0-7.7); Basophil# 0.05 X10^3/uL; Basophil% 0.9 % (0-1); Eosinophil# 0.31 X10^3/uL; Eosinophils% 5.6 % (0-5); Hematocrit 42.4 % (37-47); Hemoglobin 13.5 g/dL (12.0-15.0); Lymphocyte # 2.08 X10^3/ul (0.83-4.51); Lymphocyte % 37.3 % (19-41); Mean Corp Hgb Conc 31.8 g/dL (32-36); Mean Corpuscular Hgb 29.6 pg (27.0-32.0); Mean Platelet Vol. 11.7 fl (6.2-12.0); Monocyte# 0.32 X10^3/uL; Monocyte% 5.7 % (0-10); NRBC Flagged by Analyzer 0 % (0-5); Neutrophil % 50.3 % (47-70); Platelet Count 228 K/mm3 (150-450); RBC Distribution Width CV 13.2 % (11.6-14.6); RBC Distribution Width SD 44.7 fl (35.1-43.9); Red Blood Count 4.56 M/mm3 (4.2-5.4); White Blood Count 5.6 K/mm3 (4.4-11.0)
[2023-06-24 22:55] LABS: ALB/GLOB Ratio 1.1 RATIO (0.9-2.4); AST(SGOT) 20 U/L (15-37); Alanine Aminotransfer ALT/SGPT 31 U/L (13-56); Albumin, Serum 4.1 g/dL (3.2-5.0); Alkaline Phosphatase 68 U/L (45-117); Anion Gap 6 (5-15); BUN 21 mg/dL (7-18); Calcium,Total 9.2 mg/dL (8.5-10.1); Chloride 108 mmol/L (98-107); Cholesterol 228 mg/dL (200); Creatinine, Serum 0.84 mg/dL (0.55-1.02); EST Glomerular Filtration Rate 75 mL/min (>60); Est Glom Filt Rate - Afr Amer 90 mL/min (>60); Globulin 3.7 g/dL (2.2-4.2); Glucose 153 mg/dL (74-106); High Density Lipoprotein 52 mg/dL; Potassium 4.5 mmol/L (3.5-5.1); Protein, Total 7.8 g/dL (6.4-8.2); Sodium Level 141 mmol/L (136-145); Thyroid Stim Hormone (TSH) 2.09 uIU/mL (0.358-3.74); Triglycerides 307 mg/dL; Very Low Density Lipoprotein 61 mg/dL (5-40)
== END | disposition home or self-care (01) ==
PROVIDERS: Referring Provider Nurse Practitioner; Visit Provider Nurse Practitioner
DX: E11.69 Type 2 diabetes mellitus with other specified complication (principal); E66.9 Obesity, unspecified; E78.5 Hyperlipidemia, unspecified; E03.9 Hypothyroidism, unspecified
CPT/HCPCS: 80053; 80061; 84443; 85025

== ENCOUNTER → 2024-06-19 | Outpatient (CLI) | payer OTHER, SELFPAY ==
[2024-06-19 23:03] LABS: Absolute Lymphocyte Count 3.45 X10^3/uL (0.83-4.51); Absolute Neutrophil Count 3.6 X10^3/uL (2.0-7.7); Basophil# 0.08 X10^3/uL; Eosinophil# 0.47 X10^3/uL; Eosinophils% 5.9 % (0-5); Hematocrit 37.7 % (37-47); Hemoglobin 12.7 g/dL (12.0-15.0); Lymphocyte # 3.45 X10^3/ul (0.83-4.51); Lymphocyte % 43.2 % (19-41); Mean Corp Hgb Conc 33.7 g/dL (32-36); Mean Corpuscular Hgb 30.8 pg (27.0-32.0); Mean Corpuscular Volume 91.3 fL (81-99); Mean Platelet Vol. 11.4 fl (6.2-12.0); Monocyte# 0.41 X10^3/uL; Monocyte% 5.1 % (0-10); NRBC Flagged by Analyzer 0 % (0-5); Neutrophil # 3.55 X10^3/uL (2.7-7.7); Neutrophil % 44.5 % (47-70); Platelet Count 224 K/mm3 (150-450); RBC Distribution Width CV 13.3 % (11.6-14.6); RBC Distribution Width SD 44.7 fl (35.1-43.9); Red Blood Count 4.13 M/mm3 (4.2-5.4)
[2024-06-19 23:26] LABS: ALB/GLOB Ratio 1.1 RATIO (0.9-2.4); AST(SGOT) 27 U/L (15-37); Alanine Aminotransfer ALT/SGPT 23 U/L (13-56); Albumin, Serum 3.9 g/dL (3.2-5.0); Alkaline Phosphatase 59 U/L (45-117); Anion Gap 5 (5-15); BUN 31 mg/dL (7-18); BUN/Creat Ratio 34.1 RATIO (10-20); Calcium,Total 8.8 mg/dL (8.5-10.1); Chloride 111 mmol/L (98-107); Cholesterol 171 mg/dL (200); Creatinine, Serum 0.91 mg/dL (0.55-1.02); EST Glomerular Filtration Rate 68 mL/min (>60); Est Glom Filt Rate - Afr Amer 82 mL/min (>60); Globulin 3.4 g/dL (2.2-4.2); Glucose 88 mg/dL (74-106); High Density Lipoprotein 55 mg/dL; Potassium 4.5 mmol/L (3.5-5.1); Protein, Total 7.3 g/dL (6.4-8.2); Sodium Level 140 mmol/L (136-145); Triglycerides 92 mg/dL; Very Low Density Lipoprotein 18 mg/dL (5-40)
== END | disposition home or self-care (01) ==
PROVIDERS: Referring Provider Nurse Practitioner; Visit Provider Nurse Practitioner
DX: E11.69 Type 2 diabetes mellitus with other specified complication (principal); E66.9 Obesity, unspecified; E78.49 Other hyperlipidemia; E03.9 Hypothyroidism, unspecified
CPT/HCPCS: 80053; 80061; 84443; 85025